=== PATIENT | male | born 1980 | race Caucasian/White ===

== ENCOUNTER 2020-12-02 20:22 | Emergency (ER) | payer BC ==
[~2020-12-02] VITALS: Ht 167.6 cm; Wt 86.2 kg
[~2020-12-02 20:22] MED LIST: NOHOMEMEDICATIONS; ZOFRAN ODT4 MG PO
[2020-12-02 20:23] VITALS: BP 142/89
[2020-12-02] MEDS ORDERED: NEXIUM40 MG PO (21:59)
== END 2020-12-03 02:48 | disposition home or self-care (01) ==
LOC: ER 20:22
DX: K22.2 Esophageal obstruction (principal); Z20.822 Contact with and (suspected) exposure to COVID-19
CPT/HCPCS: 62110; 62900; 70005